=== PATIENT | female | born 1950 | race Caucasian/White ===

== ENCOUNTER 2018-05-18 07:56 | Outpatient (CLI) | payer OTHER | END 2018-05-18 08:13 | disposition home or self-care (01) | LOC: TOM 07:56 | DX: K56.50 Intestinal adhesions [bands], unspecified as to partial versus complete obstruction (principal); K56.609 Unspecified intestinal obstruction, unspecified as to partial versus complete obstruction ==

== ENCOUNTER 2020-11-24 07:14 | Outpatient (CLI) | payer OTHER | END 2020-11-24 07:18 | disposition home or self-care (01) | LOC: NUCLEAR 07:14 | PROVIDERS: ATTEND Internal Medicine Cardiovascular Disease | DX: I20.9 Angina pectoris, unspecified (principal) | CPT/HCPCS: 78452; 93017; A9500; J0153 ==

== ENCOUNTER 2021-02-18 07:36 | Outpatient (CLI) | payer OTHER | END 2021-02-18 07:45 | disposition home or self-care (01) | LOC: TOM 07:36 | PROVIDERS: ATTEND Internal Medicine Gastroenterology | DX: K92.1 Melena (principal); I70.8 Atherosclerosis of other arteries ==